=== PATIENT | female | born 1990 | race Caucasian/White ===

== ENCOUNTER 2023-09-26 14:58 | Outpatient (CLI) | payer OTHER | END 2023-09-26 14:59 | disposition home or self-care (01) | LOC: CSHULT 14:58 | PROVIDERS: ATTEND Nurse Practitioner Family | DX: R31.0 Gross hematuria (principal); R31.29 Other microscopic hematuria; N39.9 Disorder of urinary system, unspecified | CPT/HCPCS: 76770 ==